=== PATIENT | female | born 1945 | race Caucasian/White ===

== ENCOUNTER 2017-11-14 07:08 | Day surgery (SDC) | payer MEDICARE, BC ==
[2017-11-14] MEDS ORDERED: Sodium Chloride 0.9% 10 ML Syringe FLUSH PRN (07:15)
[2017-11-14] MEDS ORDERED: Lactated Ringers 1,000 ML IV SCH (07:15)
[2017-11-14] MEDS ORDERED: Propofol 200 MG/20 ML SDV IV ONE (09:00)
--- NOTE | 2017-11-14 09:27 | PCM.OPNOTE ---
- General Post-Op/Procedure Note Date of Surgery/Procedure: 11/14/17 Operative Procedure(s): c scope Findings: normal colon Pre Op Diagnosis: + FIT Post-Op Diagnosis: nl scope Anesthesia Technique: MAC Primary Surgeon: Modesto Vasquez Anesthesia Provider: Emily White Pathology: none Complications: None Condition: Good Free Text/Narrative:: see dictation
--- NOTE | 2017-11-14 12:05 | OR ---
DATE OF OPERATION: 11/14/2017 SURGEON: Modesto Vasquez MD PROCEDURE PERFORMED: Colonoscopy. PREOPERATIVE DIAGNOSIS: Positive FIT. POSTOPERATIVE DIAGNOSIS: Normal colon. INDICATIONS FOR PROCEDURE: This is a 72-year-old white female who is referred for a FIT testing. She is due for a followup colonoscopy in 2 years. She was offered and accepted colonoscopy at this point. DESCRIPTION OF PROCEDURE: After an excellent IV sedation was administered, digital rectal exam was performed. No marked abnormality was noted. Flexible colonoscope was inserted and advanced to the cecum without difficulty. The prep was excellent. The following findings were noted. Ascending colon, unremarkable. Transverse colon, unremarkable. Descending colon, unremarkable. Sigmoid and rectum, unremarkable. Colon was deflated. Scope was removed. The patient tolerated the procedure well, and was taken to recovery room in good condition. /[id number] /MELINDAL
== END 2017-11-14 10:30 | disposition home or self-care (01) ==
LOC: FB.SDS 07:08
PROVIDERS: ATTEND Surgery
DX: R19.5 Other fecal abnormalities (principal); J32.9 Chronic sinusitis, unspecified; Z79.899 Other long term (current) drug therapy; Z87.891 Personal history of nicotine dependence
CPT/HCPCS: 45378; J7120; 00812-QZ; J2704